=== PATIENT | male | born 1975 | race Caucasian/White ===

== ENCOUNTER → 2021-07-28 | Outpatient (CLI) | payer MEDICARE ==
--- NOTE | 2021-07-28 11:49 | RAD ---
MR LUMBAR SPINE WO [id number] History: Reason: LUMBAR RADICULOPATHY / Spl. Instructions: / History: Technique: Multiplanar, multi sequential MR imaging was performed of the lumbar spine. Comparison: None Findings: Normal vertebral body height and alignment. No fracture. Conus terminates at the normal location. No evidence of nerve root clumping. L1-L2: No canal or neuroforaminal narrowing. L2-L3: No canal or neuroforaminal narrowing. Mild facet arthropathy. L3-L4: Small disc bulge. Moderate facet arthropathy. No canal narrowing. Mild right subarticular rec ess narrowing. Mild right neuroforaminal narrowing. L4-L5: Left paracentral disc extrusion extending inferiorly. Prior left hemilaminectomy. Mild canal narrowing bilateral subarticular recess narrowing, left greater than right. Abutment and displacement of the descending left L5 nerve root. Moderate facet arthropathy. Mild bilateral neuroforaminal narr owing. L5-S1: Large disc extrusion. Severe canal narrowing with nerve root abutment and displacement, right greater than left. Moderate facet arthropathy. Moderate to severe left and moderate right neuroforam inal narrowing. Impression: 1. Multilevel lumbar spondylosis most prominent L4-5 and L5-S1. 2. L5-S1 large disc extrusion contributing to severe canal narrowing with nerve root abutment and di splacement, right greater than left. 3. L4-5 disc extrusion contributing to mild canal narrowing and mass effect on the descending left L 5 nerve root. Electronically signed by: Konstantin Ventura DO (07/28/2021 11:46 AM) [id number]
== END ==
LOC: MRI 09:38
PROVIDERS: ATTEND Neurological Surgery
DX: M47.817 Spondylosis without myelopathy or radiculopathy, lumbosacral region (principal); M51.27 Other intervertebral disc displacement, lumbosacral region; M48.8X7 Other specified spondylopathies, lumbosacral region; M48.07 Spinal stenosis, lumbosacral region
CPT/HCPCS: 72148

== ENCOUNTER → 2021-08-02 | Outpatient (CLI) | payer MEDICARE ==
[~2021-08-02] MED LIST: CYCL10TA19 PO; DOCU-109 PO; IBUP-1060 PO; OXYC1TAB15 PO; PRED2.5T PO
[2021-08-02 14:19] LABS: BASO # 0.1 x10^3/uL (0.0-0.2); BASO % 0 % (0-3); EOS # 0.1 x10^3/uL (0.0-0.7); EOS % 0 % (0-3); HEMATOCRIT 48.1 % (39.0-53.0); LYMPH % 24 % (24-48); MEAN CORPUSCULAR HEMOGLOBIN 30 pg (25-35); MEAN CORPUSCULAR HGB CONC 33 g/dL (31-37); MEAN CORPUSCULAR VOLUME 91 fL (79-100); MONO # 1.1 x10^3/uL (0.0-1.1); MONO % 7 % (0-9); NEUT # 11.6 x10^3/uL (1.8-7.7); NEUT % 69 % (31-73); PLATELET COUNT 311 x10^3/uL (140-400); RED BLOOD COUNT 5.28 x10^6/uL (4.30-5.70); RED CELL DISTRIBUTION WIDTH 13.2 % (11.5-14.5); WHITE BLOOD COUNT 16.8 x10^3/uL (4.0-11.0)
[2021-08-02 14:40] LABS: ALBUMIN 3.8 g/dL (3.4-5.0); ALBUMIN/GLOBULIN RATIO 1.1 (1.0-1.7); CALCIUM 9.1 mg/dL (8.5-10.1); CREATININE 0.9 mg/dL (0.7-1.3); GFR 91.3; POTASSIUM 4.4 mmol/L (3.5-5.1); TOTAL BILIRUBIN 0.2 mg/dL (0.2-1.0); TOTAL PROTEIN 7.4 g/dL (6.4-8.2)
[2021-08-04 01:11] LABS: HEMOGLOBIN A1C 8.1 % (4.8-5.6)
== END ==
LOC: SURGPAT 13:40
PROVIDERS: ATTEND Neurological Surgery
DX: Z01.812 Encounter for preprocedural laboratory examination (principal); M51.17 Intervertebral disc disorders with radiculopathy, lumbosacral region; E11.9 Type 2 diabetes mellitus without complications; Z20.822 Contact with and (suspected) exposure to COVID-19
CPT/HCPCS: 36415; 80053; 83036; 85025; 87641; U0003; U0005

== ENCOUNTER 2021-08-04 07:14 | Day surgery (SDC) | payer MEDICARE ==
[2021-08-02 14:22] VITALS: BP 135/95
--- NOTE | 2021-08-03 11:14 | PREOP HP ---
DATE OF SERVICE: 08/04/2021 HISTORY OF PRESENT ILLNESS: The patient is a 46-year-old man who related that in 2019, he had lumbar surgery by Dr. De Luna and did well. He had occasional problems with back pain until recently when he developed very severe pain in his right leg. The pain is in his right buttock, posterior thigh and leg to the heel of his foot. The pain was so severe that he went to the Emergency Room last week. He said he has decreased his activities since that time. He has been taking steroids orally, which do help him. He says currently his pain is 6/10 without moving, but activity increases the pain to 10/10. He says the pain is constant and standing markedly increases his pain. Lying down can help. He takes ibuprofen and prednisone as well as oxycodone. He is also taking Flexeril. He had intramuscular steroid injections, which helped him as well. He did see his chiropractor, which was of no benefit. CURRENT MEDICATIONS: Prednisone, ibuprofen, Flexeril, and oxycodone. PAST MEDICAL HISTORY: Arthritis, asthma, seizures, headaches, neck injury, hypertension, hemorrhagic stroke. PAST SURGICAL HISTORY: Previous surgery in the lumbar spine with Dr. De Luna in 2019. FAMILY HISTORY: Diabetes, seizures, heart disease, hypertension, headaches, spine problems. SOCIAL HISTORY: Single, nonsmoker, does not drink alcohol. REVIEW OF SYSTEMS: A 12-point review of systems was performed and is noncontributory except that mentioned above. PHYSICAL EXAMINATION: GENERAL: Alert, pleasant. HEENT: Head is normocephalic, atraumatic. SKIN: Warm and dry. Well-healed lumbar incision. MUSCULOSKELETAL: Lumbar paraspinal muscle bulk is normal, restricted range of motion of the lumbar spine, [id number] tenderness of the lower lumbar spine with palpation, normal range of motion of the lower extremities bilaterally. EXTREMITIES: No clubbing, cyanosis or edema. NEUROLOGIC: Alert and oriented x 3. Strength is 5/5 in the lower extremities except for right plantar flexion, which is 4/5. Sensory is intact to light touch in the lower extremities except for decreased light touch involving the posterior leg and right foot diffusely. Reflexes were present and symmetric in the lower extremities bilaterally except for an absent right ankle jerk. There was a markedly positive straight leg raising on the right. There was a positive cross straight leg raising on the left. He had slow, stooped antalgic gait. IMAGING: I reviewed a lumbar CT scan as well as lumbar MRI scan. There are postoperative changes at L4-5 on the left. At L5-S1, there is a large disk herniation on the right hand side, which compresses the S1 nerve root. ASSESSMENT AND PLAN: He has a severe radiculopathy. I suspect that the large disk herniation on the right at L5-S1 is responsible for his symptoms. Based off the severity of his symptoms, I feel that surgery will need to be performed. I did speak with him about the surgery including the technique, the risk and the expected postoperative course. He understands and would like to proceed. [place] DR: Celestina TID: [id number]
[~2021-08-04] VITALS: Ht 177.8 cm; Wt 91.0 kg
[~2021-08-04 07:14] MED LIST changes: +BUPIVACAINE-EPI 0.5% 30 ML VIAL KIT. ONE; +DEXAMETHASONE SOD PHOS 4 MG/ML VIAL ONE; -DOCU-109 PO; +GELATIN SPONGE SIZE 100. ONE; +IV RINGERS,LACTATED 1000ML 1,000 ML IV SCH; +KETOROLAC 60 MG/2 ML VIAL. ONE; +LIDOCAINE 2% PF 5 ML VIAL. ONE; +MIDAZOLAM HCL/PF 2 MG/2 ML VIAL. ONE; +ONDANSETRON PF 4 MG/2 ML VIAL. ONE; +PHENYLEPHRINE 10 MG/ML VIAL. ONE; +PROCHLORPERAZINE 10 MG/2 ML VIAL. IVP PRN; +PROPOFOL 10 MG/ML (20ML) VIAL. IV ONE; +PROPOFOL 50 ML IV ONE; +REMIFENTANIL 1 MG VIAL. IV ONE; +ROCURONIUM 50 MG/5 ML VIAL. ONE; +SUCCINYLCHOLINE 200 MG/10 ML VIAL. ONE; +THROMBIN TOPICAL 20,000 UNIT SPRAY.SYRN KIT TP ONE; +ceFAZolin SODIUM 1 GM in IV NORMAL SALINE 1000ML BAG 1,000 ML IRR ONE; +fentaNYL PF VIAL 100 MCG/2 ML VIAL IVP PRN; +fentaNYL PF VIAL 100 MCG/2 ML VIAL ONE
[2021-08-04 07:45] VITALS: BP 135/95
[2021-08-04] MEDS ORDERED: HYDROmorphone 2 MG/ML VIAL ONE ×2 (08:08→11:56)
[2021-08-04] MEDS ORDERED: REMIFENTANIL 1 MG VIAL. IV ONE (08:19)
[2021-08-04] MEDS ORDERED: 0.9 % SODIUM CHLORIDE 20 ML VIAL. IJ ONE (08:49)
[2021-08-04] MEDS ORDERED: SEVOFLURANE > 120 MINUTES. IH ONE (08:49)
[2021-08-04] MEDS ORDERED: NEOSTIGMINE METHYLSULFATE 5 MG/5 ML SYRINGE. ONE (09:01)
[2021-08-04] MEDS ORDERED: GLYCOPYRROLATE 1 MG/5 ML VIAL. ONE (09:01)
[2021-08-04] MEDS ORDERED: DOCU-109 PO (11:16)
--- NOTE | 2021-08-04 11:20 | DISCH ---
DISCHARGE INSTRUCTIONS Condition on Discharge Condition on Discharge: Stable Activity After Discharge Activity Instructions for Disc: Activity as tolerated, Avoid exertion Other activity instructions: no driving for a week Bathing Instructions: Shower-keep dressing dry Lifting Instructions after Dis: No heavy lifting, No pulling or pushing, Do not lift >10 pounds Diet after Discharge Additional Diet Restrictions: resume home diet Wound Incision Care Wound/Incision Care: Ice to area for comfort Other wound/incision instructi: may remove dressing in 48 hours if dry, no soaking Contacting the DRGene after DC Call your doctor for: Concerns you may have Follow-Up Follow up with: Dr. Linraes's nurse in 2 weeks [phone] REBA LINARES MD Aug 04, 2021 11:20
[2021-08-04] MEDS ORDERED: MORPHINE SULFATE 2 MG/ML INJ. ONE (11:41)
[2021-08-04] MEDS: MORPHINE SULFATE 2 MG/ML INJ. IVP PRN ×2 (11:45→11:58)
[2021-08-04] MEDS ORDERED: oxyCODONE/APAP 5/325 1 TAB TABLET PO ONE ×2 (11:45)
[2021-08-04] MEDS: HYDROmorphone 2 MG/ML VIAL IVP PRN ×2 (12:04→12:22)
[2021-08-04 12:22] VITALS: BP 147/78
--- NOTE | 2021-08-04 12:42 | OP ---
DATE OF SURGERY: 08/04/2021 PREOPERATIVE DIAGNOSIS: Large herniated disc at L5-S1 with severe right lumbar radiculopathy. POSTOPERATIVE DIAGNOSIS: Large herniated disc at L5-S1 with severe right lumbar radiculopathy. OPERATION PERFORMED: Hemilaminotomy and microdiscectomy L5-S1, right. The operation was done with EMG monitoring, SSEP monitoring, fluoroscopy, microscopic dissection. SURGEON: Reg Carranza M.D. CHAIN SPLITTER: ORIN Zheng, assisted with the surgery. She assisted with the exposure, the microdiscectomy as well as the closure. OPERATIVE INDICATIONS: The patient is a pleasant 46-year-old who developed intractable back and right leg pain. In the past, he had surgery by another surgeon and did well; however, this problem began abruptly several months ago and was excruciatingly severe at 10/10. He had intramuscular steroid injections and had chiropractic treatment, which were of no benefit. He was seen in the ER. On imaging studies, there was a very large disc herniation at L5-S1 on the right and I recommended lumbar microsurgery. I spoke with him about the surgery, the risks, the technique and expected postoperative course, and he understood. DESCRIPTION OF PROCEDURE: Following general endotracheal anesthesia, the patient was positioned prone on the Seth table. Lumbar region was prepped and draped in standard fashion. CAT hose and AV impulse boots were applied for DVT prophylaxis. The microscope was draped, fluoroscopy was draped and brought into field. Monitoring was established. Ancef 2 grams given less than one hour prior to initiation of surgery. Using fluoroscopic guidance, a midline incision was made directly over the L5-S1 interspace. I dissected down through skin and subcutaneous tissue, reflected the paraspinal muscles, placed a [place] microdisk retractor, brought in the microscope. Using high speed air drill, I burred down a generous hemilaminotomy and peeled away thickened ligamentum flavum. Even prior to removing the ligament, there was a disc in the epidural space, both dorsal and dorsolateral to the lumbar, which I then removed. I then worked and gently worked through scar and what appeared to be a sequestered disc fragment and decompressed the region. I then removed several large disc fragments from beneath the nerve root. I explored carefully. I did not see any significant residual disc material. The root was very free. I did perform partial foraminotomy. I irrigated copiously and then I closed the wound in layers with absorbable suture and the skin was closed with 4-0 subcuticular stitch. I felt the surgery went very well. RYNA/GALE/BART DR: Weston TID: [id number] MTDD
--- NOTE | 2021-08-09 18:15 | PATHOLOGY ---
[facility] Accession Number: [id number] . 01 Material submitted: . vertebral column - LUMBAR DISC AND DECOMPRESSION . 01 Clinical history: . LUMBAR HERNIATED DISC WITH RADICULOPATHY LUMBAR MICRODISCECTOMY L5-S1 . 02 Diagnosis: Segments of fibrocartilaginous, fibroadipose, and skeletal muscle tissue and calcified bone, lumbar disc and decompression: - Degenerative changes of fibrocartilaginous tissue. (JPM:[facility]; 08/09/2021) P 08/09/2021 0902 Local . 02 Comment: There is no evidence of an acute inflammatory process or malignancy. (JPM:[facility]; 08/09/2021) . 02 Electronically signed: . Oziel Lama MD, Pathologist NPI- [id number] . 01 Gross description: . Received in formalin labeled "Josafat Bullock, lumbar disc and decompression" are multiple chowdhury-brown soft tissue fragments measuring in aggregate 4.3 x 3.2 x 0.9 cm. Architectural Sales Consultant sections of the specimen is submitted in cassette A1.([facility]; 08/05/2021) GZA/GZA 08/05/2021 1018 Local . 02 Pathologist provided ICD-10: M51.36 . 02 CPT . 424965 Specimen Comment: A courtesy copy of this report has been sent to [phone], [phone] Specimen Comment: [phone] Specimen Comment: Report sent to / DR MCCULLOUGH Performed at: 01 [facility] [address], [place] [id number] MD Caden Quezada MD Phone: [phone] Performed at: 02 [facility] [address], [place] [id number] MD Oziel Lama MD Phone: [phone]
== END 2021-08-04 13:30 | disposition home or self-care (01) ==
LOC: SURG 07:14
PROVIDERS: ATTEND Neurological Surgery
DX: M51.16 Intervertebral disc disorders with radiculopathy, lumbar region (principal); M19.90 Unspecified osteoarthritis, unspecified site; J45.909 Unspecified asthma, uncomplicated; I10 Essential (primary) hypertension; K21.9 Gastro-esophageal reflux disease without esophagitis; F41.9 Anxiety disorder, unspecified; F32.9 Major depressive disorder, single episode, unspecified; Z86.73 Personal history of transient ischemic attack (TIA), and cerebral infarction without residual deficits; Z79.899 Other long term (current) drug therapy; Z98.890 Other specified postprocedural states; Z82.49 Family history of ischemic heart disease and other diseases of the circulatory system; Z83.3 Family history of diabetes mellitus; Z87.891 Personal history of nicotine dependence; Z88.8 Allergy status to other drugs, medicaments and biological substances
CPT/HCPCS: 63030; 82962; 97116; 97162; 97530; A4364; A4556; A4930; A6254; A6258; J0330; J0690; J1100; J1170; J1885; J2250; J2270; J2370; J2405; J2704; J2710; J3010; J3490; J7030; 76000; 88304; A4222